=== PATIENT | female | born 1960 | race Caucasian/White ===

== ENCOUNTER → 2018-10-14 | Outpatient (CLI) | payer BC | LOC: MC.RAD 10:40 | DX: Z12.31 Encounter for screening mammogram for malignant neoplasm of breast (principal) ==

== ENCOUNTER → 2019-11-07 | Outpatient (CLI) | payer BC | LOC: MC.RAD 09:36 | DX: Z12.31 Encounter for screening mammogram for malignant neoplasm of breast (principal) ==

== ENCOUNTER → 2021-01-08 | Outpatient (CLI) | payer BC | LOC: MC.RAD | DX: Z12.31 Encounter for screening mammogram for malignant neoplasm of breast (principal); Z98.82 Breast implant status ==

== ENCOUNTER → 2022-04-03 | Outpatient (CLI) | payer BC | LOC: MC.RAD 10:52 | DX: Z12.31 Encounter for screening mammogram for malignant neoplasm of breast (principal) ==

== ENCOUNTER → 2024-03-23 | Outpatient (CLI) | payer BC | LOC: MC.RAD 14:05 | DX: Z12.31 Encounter for screening mammogram for malignant neoplasm of breast (principal) ==